=== PATIENT | male | born 1985 | race Two or more races ===

== ENCOUNTER 2020-02-10 12:58 | Emergency (ER) | payer SELFPAY ==
[~2020-02-10] VITALS: Ht 188 cm; Wt 208.0 kg
--- NOTE | 2020-02-10 13:29 | PHYS DOC ---
General Adult EDM: Chief Complaint: ABDOMINAL PAIN HPI: HPI: Patient is a 34 year old male with history of gastritis, alcohol use, who presents to the ED today complaining of 8 out of 10 epigastric abdominal pain nonradiating in nature that began last night. Patient is also complaining of vomiting. Denies any fever, diarrhea. He states he has had similar pain before when he had a gastritis attack. He states he drank 5 beers yesterday. He states his gastritis is triggered by alcohol use. Denies any hematemesis or melena. Cord Cutter line was used for [place] Review of Systems: Review of Systems: Constitutional: Denies fever or chills. [] Eyes: Denies change in visual acuity. [] HENT: Denies nasal congestion or sore throat. [] Respiratory: Denies cough or shortness of breath. [] Cardiovascular: Denies chest pain or edema. [] GI: Reports epigastric abdominal pain with vomiting, denies bloody stools or diarrhea. [] : Denies dysuria. [] Musculoskeletal: Denies back pain or joint pain. [] Integument: Denies rash. [] Neurologic: Denies headache, focal weakness or sensory changes. [] Psychiatric: Denies depression or anxiety. [] Heart Score: Risk Factors: Risk Factors: DM, Current or recent (<one month) smoker, HTN, HLP, family history of CAD, obesity. Risk Scores: Score 0 - 3: 2.5% MACE over next 6 weeks - Discharge Home Score 4 - 6: 20.3% MACE over next 6 weeks - Admit for Clinical Observation Score 7 - 10: 72.7% MACE over next 6 weeks - Early Invasive Strategies Current Medications: Current Medications Medications (Trade) Dose Ordered Sig/Liliya Start Time Stop Time Status Last Admin Dose Admin Famotidine (Pepcid Vial) 20 mg 1X ONCE 02/10/20 13:30 02/10/20 13:31 UNV Multi-Ingredient Mouthwash/Gargle (Gi Cocktail) 20 ml 1X ONCE 02/10/20 13:30 02/10/20 13:31 UNV Ondansetron HCl (Zofran) 4 mg 1X ONCE 02/10/20 13:30 02/10/20 13:31 UNV Sodium Chloride 1,000 ml @ 1,000 mls/hr 1X ONCE 02/10/20 13:30 02/10/20 14:29 UNV Physical Exam: PE: Constitutional: Well developed, well nourished, no acute distress, non-toxic appearance. [] HENT: Normocephalic, atraumatic, bilateral external ears normal, oropharynx moist, no oral exudates, nose normal. [] Eyes: PERRLA, EOMI, conjunctiva normal, no discharge. [] Neck: Normal range of motion, no tenderness, supple, no stridor. [] Cardiovascular:Heart rate regular rhythm, no murmur [] Lungs & Thorax: Bilateral breath sounds clear to auscultation [] Abdomen: Bowel sounds normal, soft, no right upper quadrant tenderness, mild epigastric tenderness, no right lower quadrant tenderness, negative psoas sign, negative obturator sign, no guarding, no masses, no pulsatile masses. [] Skin: Warm, dry, no erythema, no rash. [] Back: No tenderness, no CVA tenderness. [] Extremities: No tenderness, no cyanosis, no clubbing, ROM intact, no edema. [] Neurologic: Alert and oriented X 3, normal motor function, normal sensory function, no focal deficits noted. [] Psychologic: Affect normal, judgement normal, mood normal. [] EKG: EKG: [] Radiology/Procedures: Radiology/Procedures: []PROCEDURE: ABDOMEN LTD ABDOMEN LTD History: Epigastric pain. Comparison: None. Technique: Transabdominal ultrasound images are obtained of the right upper quadrant. Findings: Visualized pancreas is not well seen due to overlying bowel gas. Liver is increased in echogenicity. Right hepatic lobe measures 17.3 cm. Portal flow is hepatopedal. Gallbladder has an unremarkable appearance. Common bile duct measures 5 mm in diameter. The right kidney measures 11.4 x 5.3 x 4.7 cm. No hydronephrosis. Aorta and IVC not well seen due to overlying bowel gas. IMPRESSION: 1. Hepatomegaly with increased echotexture, may indicate steatosis. Electronically signed by: Lee Martin DO (02/10/2020 2:05 PM) [id number] DICTATED and SIGNED BY: LEE MARTIN DO DATE: 02/10/20 1405 Course & Med Decision Making: Course & Med Decision Making Pertinent Labs and Imaging studies reviewed. (See chart for details) This is a 34-year-old male patient presenting to the ED today complaining of epigastric abdominal pain, symptoms began last night, also complaining of vomiting. History of gastritis and alcohol use, drank 5 beers yesterday which is a chronic issue. CBC with a normal WBC. CMP with no acute findings Ultrasound of the abdomen limited noted for liver steosis otherwise no acute findings UDS + for cocaine and methamphetamine use. Encoureaged to get help for drugs and alcohol use. D/c to home. F[facility]u with GI and [facility] Disclaimer: Amena Disclaimer: This electronic medical record was generated, in whole or in part, using a voice recognition dictation system. Departure Departure Impression: Primary Impression: Alcohol use Additional Impressions: Gastritis Qualified Codes: K29.20 - Alcoholic gastritis without bleeding Cocaine abuse Methamphetamine use Disposition: HOME, SELF-CARE Condition: STABLE Referrals: VISHAL PEACE MD follow up in one week Patient Instructions: Alcoholic Gastritis-Brief, Cocaine Abuse-Brief, Methamphetamine Abuse, Complications Additional Instructions: Please consider getting help for your alcohol and drug abuse. Take the prescribed medication as ordered Push fluids Follow-up with the provided office machine service supervisor in 1 to 2 weeks. Scripts Ondansetron (ONDANSETRON ODT) 4 Mg Tab.rapdis 1 TAB PO PRN Q6-8HRS, #16 TAB Prov: ELEANOR HERNANDES APRN 02/10/20 Famotidine (FAMOTIDINE) 20 Mg Tablet 20 MG PO DAILY, #14 TAB Prov: ELEANOR HERNANDES MACHINE MAINTENANCE TECHNICIAN 02/10/20 ELEANOR HERNANDES APRN February 10, 2020 13:29
[2020-02-10] MEDS ORDERED: LIDO:MAALOX 1:1 20 ML SINGLE DOSE. SWSW ONE (13:30)
[2020-02-10] MEDS ORDERED: FAMOTIDINE 20 MG/2 ML VIAL IVP ONE (13:30)
[2020-02-10] MEDS ORDERED: ONDANSETRON PF 4 MG/2 ML VIAL. IVP ONE (13:30)
[2020-02-10] MEDS ORDERED: IV NORMAL SALINE 1000ML BAG 1,000 ML IV ONE (13:30)
[2020-02-10 13:53] LABS: BASO % 1 % (0-3); EOS # 0.1 x10^3/uL (0.0-0.7); EOS % 2 % (0-3); HEMATOCRIT 46.8 % (39.0-53.0); HEMOGLOBIN 16.2 g/dL (13.0-17.5); LYMPH # 1.3 x10^3/uL (1.0-4.8); LYMPH % 17 % (24-48); MEAN CORPUSCULAR HEMOGLOBIN 32 pg (25-35); MEAN CORPUSCULAR HGB CONC 35 g/dL (31-37); MEAN CORPUSCULAR VOLUME 93 fL (79-100); MONO # 0.5 x10^3/uL (0.0-1.1); MONO % 7 % (0-9); NEUT # 5.6 x10^3/uL (1.8-7.7); NEUT % 74 % (31-73); PLATELET COUNT 253 x10^3/uL (140-400); RED BLOOD COUNT 5.05 x10^6/uL (4.30-5.70); RED CELL DISTRIBUTION WIDTH 12.8 % (11.5-14.5); WHITE BLOOD COUNT 7.6 x10^3/uL (4.0-11.0)
[2020-02-10 14:06] LABS: CALCIUM 9.1 mg/dL (8.5-10.1); CREATININE 0.8 mg/dL (0.7-1.3); GFR 111.3; POTASSIUM 4.3 mmol/L (3.5-5.1)
--- NOTE | 2020-02-10 14:08 | RAD ---
ABDOMEN LTD History: Epigastric pain. Comparison: None. Technique: Transabdominal ultrasound images are obtained of the right upper quadrant. Findings: Visualized pancreas is not well seen due to overlying bowel gas. Liver is increased in echogenicity. Right hepatic lobe measures 17.3 cm. Portal flow is hepatopedal. Gallbladder has an unremarkable appearance. Common bile duct measures 5 mm in diameter. The right kidney measures 11.4 x 5.3 x 4.7 cm. No hydronephrosis. Aorta and IVC not well seen due to overlying bowel gas. IMPRESSION: 1. Hepatomegaly with increased echotexture, may indicate steatosis. Electronically signed by: Lee Pena DO (02/10/2020 2:05 PM) [id number]
[2020-02-10 14:11] LABS: MAGNESIUM 2.1 mg/dL (1.8-2.4); TOTAL BILIRUBIN 0.8 mg/dL (0.2-1.0); TOTAL PROTEIN 7.9 g/dL (6.4-8.2)
[2020-02-10 14:42] LABS: BILIRUBIN,URINE NEGATIVE (NEG); CLARITY,URINE CLEAR; COLOR,URINE YELLOW; NITRITE,URINE NEGATIVE (NEG); PH,URINE 6.5 (<5.0-8.0); PROTEIN,URINE NEGATIVE (NEG-TRACE)
[2020-02-10 14:50] LABS: BARBITURATES NEG (NEG); BENZODIAZEPINES NEG (NEG); CANNABINOIDS NEG (NEG); COCAINE POS (NEG); METHADONE NEG (NEG); OPIATES NEG (NEG); PHENCYCLIDINE NEG (NEG)
[2020-02-10 14:51] LABS: SQUAMOUS EPITHELIAL CELL,UR FEW /LPF
[2020-02-10 14:52] LABS: AMORPHOUS SEDIMENT,UR PRESENT /HPF; BACTERIA,URINE 0 /HPF (0-FEW); RBC,URINE 0 /HPF (0-2); WBC,URINE OCC /HPF (0-4)
[2020-02-10 14:54] LABS: AMPHETAMINE/METHAMPHETAMINE POS (NEG)
[2020-02-10] MEDS ORDERED: ONDA4TAB12 PO (15:01)
[2020-02-10] MEDS ORDERED: FAMO20TA5 PO (15:01)
[2020-02-10 15:19] VITALS: BP 143/92
== END 2020-02-10 15:40 | disposition home or self-care (01) ==
LOC: ER 12:58
DX: K29.20 Alcoholic gastritis without bleeding (principal); F10.10 Alcohol abuse, uncomplicated; F14.10 Cocaine abuse, uncomplicated; F15.90 Other stimulant use, unspecified, uncomplicated; R10.13 Epigastric pain; R11.2 Nausea with vomiting, unspecified
CPT/HCPCS: 36415; 76705; 80053; 80307; 81001; 83690; 83735; 85025; 96361; 96374; 96375; 99285; G0480; J2405; J3490; J7030